=== PATIENT | female | born 2000 | race Caucasian/White ===

== ENCOUNTER 2018-03-31 09:20 | Emergency (ER) | payer SELFPAY ==
[2018-03-31] MEDS ORDERED: Ibuprofen 800 MG TAB ONE (09:54)
--- NOTE | 2018-03-31 10:02 | RAD ---
RIGHT FOOT THREE VIEWS: History: Right foot pain. FINDINGS: Tarsals appear intact. The metatarsals and phalanges appear intact. MTP and IP joints unremarkable. IMPRESSION: Unremarkable right foot. POS: OMNALISA
== END 2018-03-31 10:15 | disposition home or self-care (01) ==
LOC: NAV ERS 09:20
DX: M79.674 Pain in right toe(s) (principal); F41.9 Anxiety disorder, unspecified; F31.9 Bipolar disorder, unspecified; F17.210 Nicotine dependence, cigarettes, uncomplicated

== ENCOUNTER 2018-06-01 07:27 | Emergency (ER) | payer SELFPAY ==
[2018-06-01] MEDS ORDERED: Sodium Chloride 0.9% 1,000 ML ONE (07:53)
[2018-06-01] MEDS ORDERED: Fentanyl 100 MCG/2 ML VIAL ONE (08:08)
[2018-06-01] MEDS ORDERED: Ondansetron PF 4 MG/2 ML Vial ONE (08:08)
[2018-06-01 08:30] LABS: ALT (SGPT) 15 U/L (8-55); AST (SGOT) 19 U/L (5-34); Albumin 4.4 g/dL (3.5-5.0); Alkaline Phosphatase 66 U/L (40-150); Anion Gap 16 mmol/L (10-20); BUN (Urea Nitrogen) 9 mg/dL (7.0-18.7); Bilirubin, Total 0.7 mg/dL (0.2-1.2); Calc. Creatinine Clearance 0 mL/min (70-130); Calcium 9.9 mg/dL (7.8-10.44); Carbon Dioxide 22 mmol/L (22-29); Chloride 105 mmol/L (98-107); Estimated GFR-MDRD Greater than 90; Globulin 2.9 g/dL (2.4-3.5); Glucose 118 mg/dL (70-105); Potassium 3.7 mmol/L (3.5-5.1); Protein, Total 7.3 g/dL (6.0-8.3); Sodium 139 mmol/L (136-145)
[2018-06-01 08:34] LABS: #Basophils 0.1 thou/uL (0.0-0.2); #Lymphocytes 2.1 thou/uL (1.20-3.40); #Monocytes 0.7 thou/uL (0.11-0.59); #Neutrophils 2.1 thou/uL (1.40-6.50); %Basophils 8.7 % (0.0-1.0); %Eosinophils 0.1 % (0.0-10.0); %Lymphocytes 17.9 % (28.0-48.0); %Monocytes 5.8 % (0.0-4.0); %Neutrophils 75.2 % (31.0-61.0); Hemoglobin 14.7 g/dL (12.0-16.0); Mean Corpuscular HGB CONC 33.8 g/dL (32.0-36.0); Mean Corpuscular Hemoglobin 30.7 pg (25.0-35.0); Mean Corpuscular Volume 90.8 fL (78.0-98.0); Mean Platelet Volume 10.2 fL (7.4-10.4); Platelet Count 255 thou/uL (130-400); RBC Distribution Width 10.9 % (11.5-14.5); Red Blood Cell (RBC) Count 4.79 mill/uL (4.00-5.20); White Blood Cell (WBC) Count 11.5 thou/uL (4.8-10.8)
[2018-06-01 08:55] LABS: Bilirubin Small (Negative); Blood, Urine Large (Negative); Clarity Slightly Cloudy (Clear); Glucose, Urine (Dipstick) Negative (Negative); Leukocyte Trace (Negative); Nitrite Negative (Negative); Protein, Urine (Dipstick) 100 mg/dL (Neg-Trace); Specific Gravity, Urine 1.025 (1.005-1.030); Urobilinogen 0.2 mg/dL (0.2-1.0); pH, Urine 7.5 (5.0-9.0)
[2018-06-01 09:00] LABS: Pregnancy Test - Urine (BHCG) Negative (Negative); Pregu Control Background? CLEAR/WHITE (CLR/WHITE); Pregu Control Bar Appear? YES (CONTROL BAR); Specific Gravity 1.025 (1.002-1.036)
[2018-06-01] MEDS ORDERED: Iopamidol 370 76% 100 ML VIAL ONE (09:00)
[2018-06-01 09:10] LABS: Bacteria/HPF Rare-Few HPF (None Seen); Other Microscopic Description NO; RBC/HPF 21-50 HPF (0-3); Squamous Epithelial 0-3 HPF (0-3)
--- NOTE | 2018-06-01 09:54 | CT ---
CT ABDOMEN WITH CONTRAST CT PELVIS WITH CONTRAST: DATE: 06/01/18 HISTORY: 18-year-old female with right lower quadrant abdominal pain, nausea, and emesis. COMPARISON: 03/19/13. TECHNIQUE: IV injection of iodinated contrast media: Administered. Oral contrast media: Not administered. FINDINGS: There is a new finding of approximately 0.3 x 0.2 x 0.1 cm tiny calculus in the right proximal ureter at the L2-3 level causing another new finding of mild dilation of the right renal collecting system. There is a normal caliber retrocecal appendix which ascends into Morison's pouch. There is no periap pendiceal fat stranding. There is a new finding of a small amount of free fluid in the cul-de-sac in the pelvic cavity. 2 cm low attenuation structure in the left adnexa suggestive of an ovarian cyst. N o small bowel dilation. No acute colonic diverticulitis. Normal left kidney, abdominal aorta, adrenal s, pancreas, liver, and spleen. Lung bases are clear. IMPRESSION: 1) Mild right obstructive uropathy due to urolithiasis: a tiny, approximately 2 or 3 mm calculus in the right proximal ureter, causing mild right hydronephrosis. 2) Normal appendix. DONNA POS: BRANDON
== END 2018-06-01 10:00 | disposition home or self-care (01) ==
LOC: NAV ERS 07:27
DX: N13.2 Hydronephrosis with renal and ureteral calculous obstruction (principal); F41.9 Anxiety disorder, unspecified; F31.9 Bipolar disorder, unspecified; Z87.891 Personal history of nicotine dependence
CPT/HCPCS: 74177; 80053; 81003; 81015; 81025; 85025; 96361; 96374; 96375; J2405; J3010; J7050

== ENCOUNTER 2018-12-24 00:40 | Emergency (ER) | payer OTHER, SELFPAY ==
[2018-12-24] MEDS ORDERED: Ondansetron ODT 4 MG TAB ONE (01:04)
[2018-12-24] MEDS ORDERED: Lidocaine Viscous Sol 2% 15 ml UD Cup ONE (01:04)
[2018-12-24] MEDS ORDERED: Famotidine 20 MG TAB ONE (01:04)
[2018-12-24] MEDS ORDERED: Mag-Al Plus 1200 MG/1200 MG/120 MG/30 ML UDCUP ONE (01:04)
== END 2018-12-24 01:14 | disposition home or self-care (01) ==
LOC: NAV ERS 00:40
DX: O21.9 Vomiting of pregnancy, unspecified (principal); O99.611 Diseases of the digestive system complicating pregnancy, first trimester; K21.9 Gastro-esophageal reflux disease without esophagitis; Z87.891 Personal history of nicotine dependence; Z3A.11 11 weeks gestation of pregnancy
CPT/HCPCS: 99283; Q0162

== ENCOUNTER 2020-03-19 10:29 | Emergency (ER) | payer MEDICAID | END 2020-03-19 11:15 | disposition home or self-care (01) | LOC: NAV ERS 10:29 | DX: O99.511 Diseases of the respiratory system complicating pregnancy, first trimester (principal); J02.9 Acute pharyngitis, unspecified; Z20.828 Contact with and (suspected) exposure to other viral communicable diseases; O99.341 Other mental disorders complicating pregnancy, first trimester; F31.9 Bipolar disorder, unspecified; F41.9 Anxiety disorder, unspecified; Z87.891 Personal history of nicotine dependence; Z3A.13 13 weeks gestation of pregnancy | CPT/HCPCS: 99283 ==

== ENCOUNTER 2020-05-17 17:49 | Emergency (ER) | payer MEDICAID, OTHER ==
[2020-05-17] MEDS ORDERED: Sodium Chloride 0.9% 1,000 ML ONE (18:12)
[2020-05-17 18:27] LABS: Bilirubin Negative (Negative); Blood, Urine Negative (Negative); Glucose, Urine (Dipstick) Negative (Negative); Ketone, Urine Negative (Negative); Leukocyte Negative (Negative); Nitrite Negative (Negative); Protein, Urine (Dipstick) Negative (Neg-Trace); Specific Gravity, Urine 1.025 (1.005-1.030); Urobilinogen 0.2 mg/dL (Less than 2)
[2020-05-17 18:55] LABS: #Basophils 0.1 thou/uL (0.0-0.2); #Eosinphils 0.1 thou/uL (0.0-0.7); #Lymphocytes 1.9 thou/uL (1.20-3.40); #Monocytes 0.7 thou/uL (0.11-0.59); #Neutrophils 8.6 thou/uL (1.40-6.50); %Basophils 0.5 % (0.0-1.0); %Eosinophils 0.6 % (0.0-10.0); %Lymphocytes 16.9 % (21.0-51.0); %Monocytes 6.1 % (0.0-10.0); %Neutrophils 75.8 % (42.0-75.0); Hemoglobin 13.2 g/dL (12.0-16.0); Mean Corpuscular HGB CONC 34.6 g/dL (32.0-36.0); Mean Corpuscular Hemoglobin 31.5 pg (27.0-31.0); Mean Corpuscular Volume 90.9 fL (78.0-98.0); Mean Platelet Volume 8.9 fL (7.4-10.4); Platelet Count 243 thou/uL (130-400); RBC Distribution Width 11.9 % (11.5-14.5); Red Blood Cell (RBC) Count 4.19 mill/uL (4.20-5.40); White Blood Cell (WBC) Count 11.4 thou/uL (4.8-10.8)
[2020-05-17 19:00] LABS: ALT (SGPT) 11 U/L (8-55); AST (SGOT) 14 U/L (5-34); Albumin 3.4 g/dL (3.5-5.0); Alkaline Phosphatase 70 U/L (40-110); Anion Gap 13 mmol/L (10-20); BUN (Urea Nitrogen) 6 mg/dL (7.0-18.7); Bilirubin, Total 0.2 mg/dL (0.2-1.2); Calc. Creatinine Clearance 0 mL/min (70-130); Calcium 8.6 mg/dL (7.8-10.44); Carbon Dioxide 21 mmol/L (22-29); Chloride 108 mmol/L (98-107); Estimated GFR-MDRD Greater than 90; Globulin 3.1 g/dL (2.4-3.5); Glucose 74 mg/dL (70-105); Potassium 3.6 mmol/L (3.5-5.1); Protein, Total 6.5 g/dL (6.0-8.3); Sodium 138 mmol/L (136-145)
[2020-05-17 19:15] LABS: Clarity SL HAZY (Clear)
== END 2020-05-17 19:30 | disposition home or self-care (01) ==
LOC: NAV ERS 17:49
DX: R42 Dizziness and giddiness (principal); F41.9 Anxiety disorder, unspecified; F32.9 Major depressive disorder, single episode, unspecified; Z79.899 Other long term (current) drug therapy
CPT/HCPCS: 80053; 81003; 84443; 85025; J7050

== ENCOUNTER 2022-03-25 23:57 | Emergency (ER) | payer OTHER | END 2022-03-26 00:35 | disposition home or self-care (01) | LOC: NAV ERS 23:57 | DX: B08.4 Enteroviral vesicular stomatitis with exanthem (principal); F17.290 Nicotine dependence, other tobacco product, uncomplicated | CPT/HCPCS: 99282 ==